=== PATIENT | female | born 1995 ===

== ENCOUNTER → 2020-03-25 | Outpatient (CLI) | payer OTHER, BC ==
[2020-03-26 09:09] LABS: SARS COV-2 IGM AB Negative (Negative)
[2020-03-26 14:09] LABS: SARS COV-2 IGG AB Negative (Negative)
== END ==
LOC: LAB SHORT 12:18 → LAB 12:18
PROVIDERS: Internal Medicine
DX: J02.9 Acute pharyngitis, unspecified (principal); R53.83 Other fatigue; Z20.828 Contact with and (suspected) exposure to other viral communicable diseases
CPT/HCPCS: 86769